=== PATIENT | male | born 1955 | race African-American/Black ===

== ENCOUNTER → 2020-12-20 | Outpatient (CLI) | payer OTHER ==
[~2020-12-20] MED LIST: ALBU1.25 NEB; AMLO-186 PO; BUSP15TA PO; ESCITALOPRAM OX20 MG PO; GABA300C18 PO; IBUP-1060 PO; LAMO100T37 PO; LISI-130 PO; MELA5CAP PO; METF-658 PO; METH-561 PO; METH-562 PO; OXYC1TAB15 PO; OXYC5CAP PO; PANT40TA77 PO
--- NOTE | 2020-12-20 14:55 | EKG ---
[facility] [address] [place] [address] Test Date: 2020-12-20 Test Time: 14:55:18 Pat Name: SONY CAPONE Department: Room: Gender: M Disc Jockey: ELVIRA : 1955 Requested By: IWONA TRIPLETT Order Number: [id number] Reading MD: Uriah oR Measurements Intervals [place] Rate: 74 P: 50 UT: 142 QRS: 50 QRSD: 72 T: 60 QT: 336 QTc: 373 Interpretive Statements SINUS RHYTHM Electronically Signed On 12-21-2020 15:27:22 CDT by Uriah Ro
[2020-12-20 15:12] LABS: BASO # 0.1 x10^3/uL (0.0-0.2); BASO % 1 % (0-3); EOS # 0.7 x10^3/uL (0.0-0.7); EOS % 8 % (0-3); HEMATOCRIT 43.2 % (39.0-53.0); HEMOGLOBIN 14.8 g/dL (13.0-17.5); LYMPH # 1.5 x10^3/uL (1.0-4.8); LYMPH % 17 % (24-48); MEAN CORPUSCULAR HEMOGLOBIN 30 pg (25-35); MEAN CORPUSCULAR HGB CONC 34 g/dL (31-37); MEAN CORPUSCULAR VOLUME 88 fL (79-100); MONO # 0.8 x10^3/uL (0.0-1.1); MONO % 9 % (0-9); NEUT # 5.9 x10^3/uL (1.8-7.7); NEUT % 66 % (31-73); PLATELET COUNT 212 x10^3/uL (140-400); RED BLOOD COUNT 4.92 x10^6/uL (4.30-5.70); RED CELL DISTRIBUTION WIDTH 16.2 % (11.5-14.5); WHITE BLOOD COUNT 8.9 x10^3/uL (4.0-11.0)
[2020-12-20 15:25] LABS: PROTHROMBIN TIME PATIENT 12.6 SEC (11.7-14.0)
[2020-12-20 15:31] LABS: ALBUMIN 4.1 g/dL (3.4-5.0); ALBUMIN/GLOBULIN RATIO 1.2 (1.0-1.7); CALCIUM 9.2 mg/dL (8.5-10.1); GFR 90.5; POTASSIUM 4.4 mmol/L (3.5-5.1); TOTAL BILIRUBIN 0.5 mg/dL (0.2-1.0); TOTAL PROTEIN 7.4 g/dL (6.4-8.2)
--- NOTE | 2020-12-20 17:02 | RAD ---
XR CHEST 2V INDICATION: PREOP LUMBAR LAMINCETOMY 12/25/20, HX OF HTN / Spl. Instructions: / History: . COMPARISON STUDY: None. FINDINGS: Lungs: Normal lung volume. No pulmonary mass or consolidation. The tracheobronchial tree and hilar st ructures are normal. Pleura: No pleural effusion or pneumothorax. Heart and Mediastinum: The cardiomediastinal silhouette is normal. Mild tortuosity of the thoracic ao rta. Bones and Soft Tissues: The bones and soft tissues are within normal limits. IMPRESSION: No acute cardiopulmonary process. Electronically signed by: Aldo Raya MD (12/20/2020 5:00 PM) [id number]
[2020-12-21 02:27] LABS: HEMOGLOBIN A1C 6.8 % (4.8-5.6)
== END ==
LOC: SURGPAT 13:13
PROVIDERS: ATTEND Neurological Surgery
DX: Z01.818 Encounter for other preprocedural examination (principal); M51.06 Intervertebral disc disorders with myelopathy, lumbar region
CPT/HCPCS: 36415; 71046; 80053; 83036; 85025; 85610; 85730; 87641; 93005

== ENCOUNTER 2020-12-25 07:24 | Observation (INO) | payer OTHER ==
[2020-12-20 14:08] VITALS: BP 121/72
[2020-12-25] VITALS (11 sets, daily range): BP systolic 103–125; BP diastolic 69–93
[~2020-12-25] VITALS: Ht 170.2 cm; Wt 76.0 kg
[~2020-12-25 07:24] MED LIST changes: +HYDROmorphone 2 MG/ML VIAL IVP PRN; -METH-562 PO; -OXYC1TAB15 PO; +PROCHLORPERAZINE 10 MG/2 ML VIAL. IVP PRN; +fentaNYL PF VIAL 100 MCG/2 ML VIAL IVP PRN
[2020-12-25] MEDS ORDERED: GELATIN SPONGE SIZE 100. ONE (07:42)
[2020-12-25] MEDS ORDERED: BUPIVACAINE MPF 0.5% 30 ML VIAL. ONE (07:42)
[2020-12-25] MEDS ORDERED: VANCOMYCIN 1 GM VIAL. ONE (07:43)
[2020-12-25] MEDS ORDERED: LIDOCAINE 1%/EPI 1:100,000 20 ML VIAL. ONE (07:43)
[2020-12-25] MEDS ORDERED: THROMBIN TOPICAL 20,000 UNIT SPRAY.SYRN KIT TP ONE (07:43)
[2020-12-25] MEDS: IV RINGERS,LACTATED 1000ML 1,000 ML IV SCH ×2 (08:15→12:32)
[2020-12-25] MEDS: INSULIN LISPRO 100 UNIT/ML 3ML VIAL for OP,RR ONLY. SQ PRN ×2 (08:16→12:55)
[2020-12-25] MEDS ORDERED: INSULIN LISPRO 100 UNIT/ML 3ML VIAL for OP,RR ONLY. SQ ONE (08:20)
[2020-12-25] MEDS ORDERED: ROCURONIUM 50 MG/5 ML VIAL. ONE (08:46)
[2020-12-25] MEDS ORDERED: GLYCOPYRROLATE 1 MG/5 ML VIAL. ONE (08:46)
[2020-12-25] MEDS ORDERED: REMIFENTANIL 2 MG VIAL. IV ONE (08:47)
[2020-12-25] MEDS ORDERED: IPRATRPIUM/ALBUTEROL 0.5/2.5MG 3 ML NEBU. ONE (08:49)
[2020-12-25] MEDS ORDERED: IPRATRPIUM/ALBUTEROL 0.5/2.5MG 3 ML NEBU. NEB ONE (09:00)
[2020-12-25] MEDS ORDERED: ESMOLOL 100 MG/10 ML VIAL. IVP ONE (10:09)
[2020-12-25] MEDS ORDERED: DEXAMETHASONE SOD PHOS 20 MG/5 ML VIAL. ONE (10:09)
[2020-12-25] MEDS ORDERED: ONDANSETRON PF 4 MG/2 ML VIAL. ONE (10:10)
[2020-12-25] MEDS ORDERED: PHENYLEPHRINE 10 MG/ML VIAL. ONE (10:10)
[2020-12-25] MEDS ORDERED: LIDOCAINE 2% PF 5 ML VIAL. ONE (10:10)
[2020-12-25] MEDS ORDERED: PROPOFOL 10 MG/ML (20ML) VIAL. IV ONE ×2 (10:10→10:49)
[2020-12-25] MEDS ORDERED: DESFLURANE > 120 MINUTES IH ONE (10:11)
[2020-12-25] MEDS ORDERED: fentaNYL PF VIAL 100 MCG/2 ML VIAL ONE ×2 (10:35→12:55)
[2020-12-25] MEDS ORDERED: NEOSTIGMINE METHYLSULFATE 5 MG/5 ML SYRINGE. ONE (10:38)
[2020-12-25] MEDS ORDERED: REMIFENTANIL 1 MG VIAL. IV ONE (10:49)
[2020-12-25] MEDS ORDERED: PROPOFOL 50 ML IV ONE ×2 (11:07)
[2020-12-25] MEDS ORDERED: ZOLPIDEM 5 MG TABLET. PO PRN (11:45)
[2020-12-25] MEDS ORDERED: diphenhydrAMINE HCL 25 MG CAPSULE PO PRN (11:45)
[2020-12-25] MEDS ORDERED: diphenhydrAMINE 50 MG/ML VIAL IV PRN (11:45)
[2020-12-25] MEDS ORDERED: fentaNYL PF VIAL 100 MCG/2 ML VIAL IVP PRN ×2 (11:45)
[2020-12-25] MEDS ORDERED: ACETAMINOPHEN 325 MG TABLET. PO PRN (11:45)
[2020-12-25] MEDS ORDERED: ONDANSETRON PF 4 MG/2 ML VIAL. IVP PRN (11:45)
[2020-12-25] MEDS ORDERED: MAGNESIUM HYDROXIDE 2,400 MG/30 ML ORAL.SUSP. PO PRN (11:45)
[2020-12-25] MEDS ORDERED: NALOXONE 0.4 MG/ML VIAL. IV PRN ×2 (11:45)
[2020-12-25] MEDS ORDERED: oxyCODONE/APAP 5/325 1 TAB TABLET PO PRN (11:45)
[2020-12-25] MEDS ORDERED: 0.9 % SODIUM CHLORIDE 10 ML DISP.SYRIN. IV PRN (11:45)
[2020-12-25] MEDS ORDERED: MAG HYDROX/ALUMINUM HYD/SIMETH 30 ML ORAL.SUSP PO PRN (11:45)
[2020-12-25] MEDS ORDERED: CALCIUM CARBONATE 500 MG TAB.CHEW PO PRN (11:45)
--- NOTE | 2020-12-25 11:45 | PDOC ---
BRIEF OPERATIVE NOTE Date: Dec 25, 2020 Pre-Op Diagnosis herniated disk L3-4, lumbar radiculopathy Post-Op Diagnosis same Procedure Performed right L3-4 hemilaminotomy with discectomy Surgeon Zurdo Second Watch Sergeant none Anesthesia Type: General Blood Loss 10mL Specimens Obtained disk and decompression Findings large disk herniation with mass effect on the adjacent neural elements, neuromonitoring improved upon completion of the procedure Complications none apparent IWONA TRIPLETT MD Dec 25, 2020 11:45
[2020-12-25] MEDS ORDERED: NON FORMULARY ITEM (Albuterol Sulfate (Albuterol Sulfate Neb Soln) 1 VIAL) NEB SCH (12:00)
[2020-12-25] MEDS ORDERED: MORPHINE SULFATE 2 MG/ML INJ. ONE (12:24)
[2020-12-25] MEDS: MORPHINE SULFATE 2 MG/ML INJ. IVP PRN ×2 (12:32→12:52)
[2020-12-25] MEDS: fentaNYL PF VIAL 100 MCG/2 ML VIAL IVP PRN ×2 (12:56→13:07)
--- NOTE | 2020-12-25 13:10 | NUR ---
Arrived to unit by bed from PACU. Sedated but awakens. No c/o. Dressing lower back d/i. Refused ice pack to site. Able to move all extremities without difficulty. Pedal pulses + bilaterally, and warm to touch. IVF's intact and infusing. O2 at 2l per n/c. RADHA's and RAMYA's on bilaterally. Side rails up x's 2 with call light in reach. Cont. monitor.
[2020-12-25] MEDS: ALBUTEROL SULFATE 2.5 MG/3 ML NEBU. NEB SCH ×2 (15:40→20:41)
[2020-12-25] MEDS: CALCIUM CARB/VIT D3 500/200 TABLET. PO SCH (17:39)
[2020-12-25] MEDS: FERROUS SULFATE 325 MG TABLET. PO SCH (17:39)
[2020-12-25] MEDS: GABAPENTIN 300 MG CAPSULE. PO SCH (20:59)
[2020-12-25] MEDS: busPIRone 10 MG TABLET. PO SCH (20:59)
[2020-12-25] MEDS: METHOCARBAMOL 750 MG TABLET PO SCH (21:00)
[2020-12-25] MEDS ORDERED: NON FORMULARY ITEM (Melatonin 3 MG) PO SCH (21:00)
[2020-12-25] MEDS: SENNOSIDES/DOCUSATE 8.6/50MG TABLET. PO SCH (21:00)
[2020-12-25] MEDS: DOCUSATE SODIUM 100 MG CAPSULE. PO SCH (21:00)
[2020-12-25] MEDS: oxyCODONE/APAP 5/325 1 TAB TABLET PO PRN (21:07)
[2020-12-25] MEDS: IV NORMAL SALINE 1000ML BAG 1,000 ML IV SCH (23:15)
[2020-12-26] MEDS: oxyCODONE/APAP 5/325 1 TAB TABLET PO PRN ×3 (02:17→12:30)
[2020-12-26 02:20] VITALS: BP 103/67
[2020-12-26 06:01] VITALS: BP 105/69
[2020-12-26] MEDS ORDERED: PANTOPRAZOLE 40 MG TABLET.DR. PO SCH (07:30)
[2020-12-26] MEDS: ALBUTEROL SULFATE 2.5 MG/3 ML NEBU. NEB SCH (07:40)
[2020-12-26] MEDS ORDERED: ALBUTEROL SULFATE 2.5 MG/3 ML NEBU. NEB PRN (07:45)
[2020-12-26] MEDS ORDERED: metFORMIN XR 500 MG TAB.ER.24H PO SCH (08:00)
[2020-12-26] MEDS: busPIRone 10 MG TABLET. PO SCH (08:29)
[2020-12-26] MEDS: CALCIUM CARB/VIT D3 500/200 TABLET. PO SCH (08:31)
[2020-12-26] MEDS: FERROUS SULFATE 325 MG TABLET. PO SCH (08:31)
[2020-12-26] MEDS: METHOCARBAMOL 750 MG TABLET PO SCH ×2 (08:31→14:11)
[2020-12-26] MEDS: DOCUSATE SODIUM 100 MG CAPSULE. PO SCH (08:31)
[2020-12-26] MEDS: GABAPENTIN 300 MG CAPSULE. PO SCH ×2 (08:31→14:11)
[2020-12-26] MEDS: SENNOSIDES/DOCUSATE 8.6/50MG TABLET. PO SCH (08:34)
[2020-12-26] MEDS ORDERED: lamoTRIgine 25 MG TABLET. PO SCH (09:00)
[2020-12-26] MEDS ORDERED: LISINOPRIL 20 MG TABLET PO SCH (09:00)
[2020-12-26] MEDS ORDERED: MULTIVITAMIN with MINERAL TABLET. PO SCH (09:00)
[2020-12-26] MEDS ORDERED: CITALOPRAM 20 MG TABLET. PO SCH (09:00)
[2020-12-26] MEDS ORDERED: OXYC1TAB15 PO (09:28)
[2020-12-26] MEDS ORDERED: METH-562 PO (09:28)
--- NOTE | 2020-12-26 09:32 | PDOC ---
Date of Service: DATE: 12/26/20 TIME: 09:30 Progress Note: S: reports resolution of leg pain, some incisional pain O: AF/VSS, AAOx4, NAD, HAY 5/5, sensation intact LT, dressing c/d/i A: POD 1 L3-4 discectomy - recovering well P: d/c home with standard post-op restrictions Justifications for Admission Other Justification IWONA TRIPLETT MD Dec 26, 2020 09:32
--- NOTE | 2020-12-26 10:53 | NUR ---
Spoke to RANDY Prieto at the [facility] in regards to the patients transportation home today at discharge. She stated they would have someone available to picker/puller the patient around 3pm. They were instructed to bring a wheelchair up to the floor but they didn't need to transport him in the wheelchair/wheelchair van and could transport him in the front seat of a car. She stated understanding and will instruct them of those directions. Patient notified and the doctor is aware. Will follow up
[2020-12-26 11:00] VITALS: BP 111/76
[2020-12-26] MEDS: IV NORMAL SALINE 1000ML BAG 1,000 ML IV SCH (11:15)
--- NOTE | 2020-12-26 14:45 | NUR ---
[facility] with [facility] around 1435. Discharge education completed by this nurse. Patient did not want his dressing changed at discharge but it has remained CDI during his stay. Extra dressings given to the patient just incase. IV discontinued without complications. No concerns noted at discharge. Hand written scripts given to the patient for percocet, robaxin, and senna per [place] Pharmacy instructions! Follow up not set up yet per Dr Marshall office due to patient having a difficulty finding a ride and patient is aware he will need to call to follow up with the doctor.
--- NOTE | 2020-12-27 20:57 | OP ---
DATE OF SURGERY: 12/25/2020 SURGEON: Noe Renner MD NETWORK SUPPORT ENGINEER: None. PREOPERATIVE DIAGNOSIS: Herniated nucleus pulposus at lumbar 3-4 with lumbar radiculopathy. POSTOPERATIVE DIAGNOSIS: Herniated nucleus pulposus at lumbar 3-4 with lumbar radiculopathy. PROCEDURE: Right lumbar 3-4 hemilaminotomy with diskectomy with intraoperative use of microscope and intraoperative neuromonitoring. ANESTHESIA: General. COMPLICATIONS: None. INDICATIONS FOR THE PROCEDURE: The patient is a very pleasant 65-year-old gentleman who presents with radiculopathy refractory to conservative management, localized large disk herniation primarily on the right at lumbar 3-4. It was felt that surgical decompression with diskectomy would be of benefit. Please refer to the patient's chart for additional details. DESCRIPTION OF PROCEDURE: After informed consent was obtained, the patient was brought to the operating room. He was placed under general anesthesia. He was placed in prone position on the Agusto frame. All pressure points were checked and padded appropriately. An appropriate incision location was localized with fluoroscopy prior to the initiation of the procedure. The lumbar region was prepped and draped in the usual sterile fashion. A vertical incision centered over the region of lumbar 3-4 was made with 10 blade scalpel. Monopolar electrocautery was utilized to dissect the avascular midline and approached the spinous processes of lumbar 3-4. Dissection was carried out rightward across the lamina at this location. The level was again verified with fluoroscopy prior to the initiation of decompression. A right hemilaminotomy was performed at lumbar 3-4 with pneumatic drill as well as Kerrison rongeur. The underlying ligament was gently dissected away from the neural elements and gently removed with a Kerrison rongeur. The thecal sac was noted to be under significant compression. This was gently retracted medially and a prominent annulus was encountered. The annulus was gently incised with an 11 blade scalpel and disk material emerged under pressure. This was removed in a piecemeal fashion with pituitary rongeur. Some of the disk fragment was noted to have migrated caudally on the patient's imaging and this was gently teased posterolaterally with a nerve hook and removed with pituitary rongeur. Upon completion of the diskectomy and decompression, the neural elements were noted to be very well decompressed, which was verified with direct visualization as well as gentle palpation with a blunt nerve hook and a [place]. It was also noted that neuromonitoring potentials were improved compared to baseline upon completion of the diskectomy. After diskectomy and decompression was complete, pristine hemostasis was achieved with FloSeal, cottonoids and some use of bipolar electrocautery. The wound was generously irrigated prior to the final closure. The muscle and fascia were then reapproximated with 0 Vicryl in a simple interrupted fashion. Subcutaneous tissues were approximated with 2-0 Vicryl in interrupted inverted fashion. Skin was reapproximated with 4-0 Vicryl in a running subcuticular fashion. Mastisol and Steri-Strips were applied and the wound was dressed with Telfa, 4 x 4's and Tegaderm. At the end of the procedure, all needle and sponge counts were correct x 2. Please note for the diskectomy portion of the procedure, microscope was utilized. Ancef was utilized as a prophylactic antibiotic prior to the initiation of the procedure. The patient was extubated in the operating room and taken to recovery in stable condition. There were no intraprocedural complications apparent. ANILA DR: Waqar TID: [id number]
--- NOTE | 2020-12-28 18:11 | PATHOLOGY ---
[facility] Accession Number: [id number] . 01 Material submitted: . vertebral column - DISK AND DECOMPRESSION. Modifiers: LUMBAR . 01 Clinical history: . LUMBAR RADICULOPATHY HERNIATED DISC (SEE REQ) W/DISCECTOMY . 02 Diagnosis: Segments of fibrocartilaginous and adipose tissue and bone, lumbar disc and decompression: - Degenerative changes of fibrocartilaginous tissue. (JPM:[facility]; 12/28/2020) [facility] 12/28/2020 1528 Local . 02 Comment: There is no evidence of an acute inflammatory process or malignancy. (JPM:[facility]; 12/28/2020) . 02 Electronically signed: . Rah Jones MD, Pathologist NPI- [id number] . 01 Gross description: . Received in formalin labeled "Fells, Lino, disk and decompression" are multiple segments of torres-brown rubbery soft tissue and gritty bone measuring in aggregate 2.6 x 2.5 x 0.8 cm. Threader tissue is submitted in cassette A1 following decalcification. ([facility] [place]; 12/27/2020) [facility] 12/28/2020 1526 Local . 02 Pathologist provided ICD-10: M54.16 . 02 CPT . 298834, [id number] Specimen Comment: A courtesy copy of this report has been sent to [phone], [phone] Specimen Comment: [id number] Specimen Comment: Report sent to / DR SIMS Performed at: 01 [facility] [address], [place], [place] [id number] MD Baldemar Llanes MD Phone: [phone] Performed at: 02 [facility] [address] [place], [place] [id number] MD Rah Jones MD Phone: [phone]
== END 2020-12-26 14:45 | disposition home or self-care (01) ==
LOC: SURG 07:24 → 4 SOUTHEST 11:45
PROVIDERS: ADMIT Neurological Surgery; ATTEND Neurological Surgery
DX: M51.16 Intervertebral disc disorders with radiculopathy, lumbar region (principal); I10 Essential (primary) hypertension; J44.9 Chronic obstructive pulmonary disease, unspecified; F41.9 Anxiety disorder, unspecified; F32.9 Major depressive disorder, single episode, unspecified; I25.10 Atherosclerotic heart disease of native coronary artery without angina pectoris; N40.0 Benign prostatic hyperplasia without lower urinary tract symptoms; E11.9 Type 2 diabetes mellitus without complications; F17.210 Nicotine dependence, cigarettes, uncomplicated; Z86.19 Personal history of other infectious and parasitic diseases
CPT/HCPCS: 63030; 82962; 94640; 94760; 97116; 97162; 97165; 97530; 97535; 99406; A4364; A4556; A4930; G0378; G0379; J0690; J1100; J1815; J2270; J2370; J2405; J2704; J2710; J3010; J3490; J7613; 76000; A4222; A4452; J3370